=== PATIENT | male | born 1960 | race Caucasian/White ===

== ENCOUNTER → 2017-11-16 15:23 | Outpatient (CLI) | payer MEDICAID, SELFPAY ==
[2017-11-16 18:01] LABS: Absolute Lymphocyte Count 1.59 X10^3/ul (0.83-4.51); Absolute Neutrophil Count 4.4 X10^3/uL (2.0-7.7); Basophil# 0.03 X10^3/uL; Basophil% 0.5 % (0-1); Eosinophil# 0.07 X10^3/uL; Eosinophils% 1.1 % (0-5); Hematocrit 41.8 % (40-54); Hemoglobin 14.4 g/dl (13.0-16.5); Lymphocyte # 1.59 X10^3/ul (4.0); Lymphocyte % 23.9 % (19-41); Mean Corp Hgb Conc 34.4 g/gl (32-36); Mean Corpuscular Hgb 32.4 pg (27.0-32.0); Mean Corpuscular Volume 94.1 fL (80-94); Mean Platelet Vol. 10.6 fl (6.2-12.0); Monocyte# 0.53 X10^3/uL; Neutrophil # 4.42 X10^3/uL (2.7-7.7); Neutrophil % 66.3 % (47-70); Platelet Count 244 K/mm3 (150-450); RBC Distribution Width CV 12.3 % (11.6-14.6); RBC Distribution Width SD 41.8 fl (35.1-43.9); Red Blood Count 4.44 M/mm3 (4.6-6.2); White Blood Count 6.7 K/mm3 (4.4-11.0)
[2017-11-16 18:06] LABS: ALB/GLOB Ratio 1.1 RATIO (0.9-2.4); AST(SGOT) 29 U/L (15-37); Alanine Aminotransfer ALT/SGPT 44 U/L (16-61); Albumin, Serum 3.9 g/dL (3.2-5.0); Alkaline Phosphatase 59 U/L (45-117); Anion Gap 10 (5-15); BUN 16 mg/dL (7-18); BUN/Creat Ratio 13.6 RATIO (10-20); Calcium,Total 8.9 mg/dL (8.5-10.1); Chloride 104 mmol/L (98-107); Creatinine, Serum 1.18 mg/dL (0.70-1.30); EST Glomerular Filtration Rate 68 mL/min (>60); Est Glom Filt Rate - Afr Amer 82 mL/min (>60); Globulin 3.7 g/dL (2.2-4.2); Glucose 97 mg/dL (74-106); Magnesium 2.1 mg/dL (1.6-2.6); Protein, Total 7.6 g/dL (6.4-8.2); Sodium Level 139 mmol/L (136-145); T4 Free Direct 0.81 ng/dL (0.76-1.46); Uric Acid 8.3 mg/dL (3.5-7.2)
[2017-11-16 18:09] LABS: POSITIVE COUNT NO; POSITIVE DIFFERENTIAL NO; POSITIVE MORPHOLOGY NO
== END ==
PROVIDERS: Visit Provider Family Medicine
DX: I49.9 Cardiac arrhythmia, unspecified (principal); G25.0 Essential tremor; E78.5 Hyperlipidemia, unspecified; M10.9 Gout, unspecified
CPT/HCPCS: 36415; 80053; 83735; 84439; 84443; 84550; 85025

== ENCOUNTER → 2017-12-10 07:41 | Outpatient (CLI) | payer MEDICAID, SELFPAY ==
--- NOTE | 2017-12-10 07:45 | ECHOD_ITS ---
Reason For Study: Arrhythmia Procedure This was a 2D Doppler, Color Flow transthoracic echocardiogram. Exam performed in department. Left Ventricle Normal LV size. Sigmoid septum. Left ventricular systolic function is normal. The estimated ejection fraction is 55 %. Transmitral diastolic flow velocities suggest mild (stage 1) diastolic dysfunction (reversed pattern). No regional wall motion abnormalities noted. Right Ventricle Normal RV size. Normal systolic function. Atria Normal left atrium. Normal right atrium. Mitral Valve Normal mitral valve. Tricuspid Valve Normal tricuspid valve. Mild (1+) tricuspid valve insufficiency. Pulmonary artery systolic pressure is 32 mmHg. Aortic Valve Trisinus/trileaflet aortic valve. Mild focal aortic valve calcification. Trivial eccentric aortic valve insufficiency. Pulmonic Valve The pulmonic valve is not well visualized. Great Vessels Normal aortic root. The pulmonary artery is normal size. Normal inferior vena cava. Pericardium/Pleural No pericardial effusion. MMode/2D Measurements & Calculations LVIDd: 5.5 cm IVSd: 1.4 cm Ao root diam: 3.4 cm LVIDs: 3.6 cm LVPWd: 0.99 cm LA dimension: 5.0 cm FS: 34.2 % LAV(MOD-bp): 72.9 ml LVAd ap4: 35.7 cm2 SV(MOD-sp4): 62.9 ml LAV(MOD-bp) Indexed: 32.9 ml/m2 EDV(MOD-sp4): 125.1 ml LAV(MOD-sp2): 74.6 ml EDV(sp4-el): 130.2 ml LAV(MOD-sp4): 65.7 ml LVAs ap4: 22.2 cm2 ESV(MOD-sp4): 62.2 ml ESV(sp4-el): 64.0 ml EF(MOD-sp4): 50.3 % EF(sp4-el): 50.9 % SV(sp4-el): 66.3 ml LA A4 area: 21.8 cm2 RA A4 area: 22.1 cm2 Time Measurements MV dec time: 0.27 sec Doppler Measurements & Calculations MV E max jose: 49.1 cm/sec Lat Peak E' Jose: 8.8 cm/sec Med Peak E' Jose: 6.8 cm/sec MV A max jose: 69.8 cm/sec E/E' lat: 5.6 E/E' med: 7.2 MV E/A: 0.70 MV V2 max: 72.3 cm/sec MV P1/2t max jose: 52.8 cm/sec Ao V2 max: 132.7 cm/sec MV max P.1 mmHg MV P1/2t: 88.4 msec Ao max P.0 mmHg MV V2 mean: 37.0 cm/sec MV dec slope: 175.2 cm/sec2 Ao V2 mean: 82.1 cm/sec MV mean P.65 mmHg MVA(P1/2t): 2.5 cm2 Ao mean P.2 mmHg MV V2 VTI: 22.2 cm Ao V2 VTI: 23.4 cm AI max jose: 479.5 cm/sec LV V1 max: 97.8 cm/sec PA V2 max: 113.1 cm/sec AI max P.0 mmHg LV V1 max P.8 mmHg AI dec slope: 174.3 cm/sec2 LV V1 mean P.9 mmHg AI P1/2t: 805.7 msec LV V1 mean: 65.2 cm/sec LV V1 VTI: 22.2 cm TR max jose: 269.0 cm/sec TR max P.9 mmHg Interpretation Summary Normal LV size. Sigmoid septum. Left ventricular systolic function is normal. The estimated ejection fraction is 55 %. Transmitral diastolic flow velocities suggest mild (stage 1) diastolic dysfunction (reversed pattern). Mild (1+) tricuspid valve insufficiency. Ordering Physician: George Rolle Referring Physician: Ander Menjivar Performed By: Eb Alexandre RCS
== END ==
PROVIDERS: Family Provider Family Medicine; PCP Family Medicine; Referring Provider Internal Medicine Cardiovascular Disease; Visit Provider Internal Medicine Cardiovascular Disease
DX: I49.3 Ventricular premature depolarization (principal)
CPT/HCPCS: 93225; 93226; 93306

== ENCOUNTER → 2017-12-21 13:28 | Outpatient (CLI) | payer MEDICAID, SELFPAY ==
[2017-12-21 15:49] LABS: Cholesterol 285 mg/dL (200); High Density Lipoprotein 58 mg/dL; Triglycerides 163 mg/dL; Very Low Density Lipoprotein 33 mg/dL (5-40)
== END ==
PROVIDERS: Family Provider Family Medicine; PCP Family Medicine; Referring Provider Family Medicine; Visit Provider Family Medicine
DX: E78.5 Hyperlipidemia, unspecified (principal)
CPT/HCPCS: 36415; 80061

== ENCOUNTER → 2018-09-25 11:02 | Outpatient (CLI) | payer OTHER, SELFPAY ==
[2018-09-23 15:29] VITALS: BMI 33.0
== END ==
PROVIDERS: Family Provider Family Medicine; PCP Family Medicine; Referring Provider Nurse Practitioner Family; Visit Provider Nurse Practitioner Family
DX: E78.5 Hyperlipidemia, unspecified (principal); I49.49 Other premature depolarization
CPT/HCPCS: 93225; 93226

== ENCOUNTER → 2018-12-13 10:10 | Outpatient (CLI) | payer SELFPAY ==
[2018-09-23 15:29] VITALS: BMI 33.0
[2018-12-13 12:46] LABS: Absolute Lymphocyte Count 1.26 X10^3/uL (0.83-4.51); Absolute Neutrophil Count 2.8 X10^3/uL (2.0-7.7); Basophil# 0.04 X10^3/uL; Basophil% 0.9 % (0-1); Eosinophil# 0.09 X10^3/uL; Hematocrit 43.8 % (40-54); Hemoglobin 14.6 g/dL (13.0-16.5); Lymphocyte # 1.26 X10^3/ul (4.0); Lymphocyte % 27.3 % (19-41); Mean Corp Hgb Conc 33.3 g/dL (32-36); Mean Corpuscular Hgb 31.3 pg (27.0-32.0); Mean Corpuscular Volume 93.8 fL (80-94); Mean Platelet Vol. 10.4 fl (6.2-12.0); Monocyte# 0.43 X10^3/uL; Monocyte% 9.3 % (0-10); NRBC Flagged by Analyzer 0 % (0-5); Neutrophil # 2.77 X10^3/uL (2.7-7.7); Neutrophil % 60.1 % (47-70); Platelet Count 243 K/mm3 (150-450); RBC Distribution Width CV 11.8 % (11.6-14.6); RBC Distribution Width SD 40.9 fl (35.1-43.9); Red Blood Count 4.67 M/mm3 (4.6-6.2); White Blood Count 4.6 K/mm3 (4.4-11.0)
[2018-12-13 13:03] LABS: ALB/GLOB Ratio 1.2 RATIO (0.9-2.4); AST(SGOT) 29 U/L (15-37); Alanine Aminotransfer ALT/SGPT 39 U/L (16-61); Albumin, Serum 4.3 g/dL (3.2-5.0); Alkaline Phosphatase 56 U/L (45-117); Anion Gap 7 (5-15); BUN 17 mg/dL (7-18); BUN/Creat Ratio 17.1 RATIO (10-20); Calcium,Total 8.8 mg/dL (8.5-10.1); Chloride 104 mmol/L (98-107); Creatinine, Serum 0.99 mg/dL (0.70-1.30); EST Glomerular Filtration Rate 82 mL/min (>60); Est Glom Filt Rate - Afr Amer 99 mL/min (>60); Globulin 3.5 g/dL (2.2-4.2); Glucose 77 mg/dL (74-106); Protein, Total 7.8 g/dL (6.4-8.2); Sodium Level 138 mmol/L (136-145); Thyroid Stim Hormone (TSH) 1.38 uIU/mL (0.358-3.74); Uric Acid 8.5 mg/dL (3.5-7.2)
== END ==
PROVIDERS: Family Provider Family Medicine; PCP Family Medicine; Visit Provider Family Medicine
DX: M10.9 Gout, unspecified (principal); E78.5 Hyperlipidemia, unspecified; R94.5 Abnormal results of liver function studies; I49.3 Ventricular premature depolarization
CPT/HCPCS: 36415; 80053; 83735; 84443; 84550; 85025